=== PATIENT | male | born 1950 ===

== ENCOUNTER 2022-08-11 07:22 | Day surgery (SDC) | payer OTHER ==
[~2022-08-11] VITALS: Ht 167.6 cm; Wt 67.1 kg
[~2022-08-11 07:22] MED LIST: ATORVASTATIN CA10 MG PO; CHILDREN'S ASPI81 MG PO; DIAZEPAM5 MG PO; DULOXETINE HCL20 MG PO; MAXIMUM D3325 MCG PO; PENTOXIFYLLINE400 MG PO; RESTORIL30 M1 PO; ZOLOFT50 MG PO
[2022-08-11] MEDS ORDERED: OXYC1TAB9 PO (13:11)
== END 2022-08-11 17:35 | disposition home or self-care (01) ==
LOC: CIR.AMB 07:22
PROVIDERS: ATTEND Surgery
DX: D12.8 Benign neoplasm of rectum (principal); K62.89 Other specified diseases of anus and rectum; K62.5 Hemorrhage of anus and rectum; Z86.010 Personal history of colon polyps; K64.8 Other hemorrhoids; Z20.822 Contact with and (suspected) exposure to COVID-19